=== PATIENT | male | born 1940 | race Caucasian/White ===

== ENCOUNTER 2017-02-08 23:26 | Inpatient (IN) | payer MEDICARE, BC ==
[2017-02-09] MEDS ORDERED: NS 0.9% 1000 ML* 1,000 ML IV ONE (00:29)
[2017-02-09] MEDS: Pantoprazole IV* 40 MG IV ONE ×2 (00:56→05:34)
[2017-02-09 01:00] LABS: Hematocrit 37 % (42-52); Hemoglobin 12.8 g/dl (14.0-18.0); Mean Corpuscular HGB Conc 34 g/dl (31-36); Mean Corpuscular Hemoglobin 35 pg (27-31); Mean Corpuscular Volume 101 fL (80-94); Mean Platelet Volume 8 um3 (7.4-10.4); Red Blood Count 3.71 10^6/ul (4.0-5.4); Red Cell Distribution Width 13 % (10.5-15); White Blood Count 4.4 10^3/ul (3.5-10.8)
[2017-02-09 01:13] LABS: Albumin 4.3 g/dL (3.2-5.2); BUN/Creatinine Ratio 16.9 (8-20); Calcium 9.3 mg/dL (8.6-10.3); EGFR African American 65.2 (>60); EGFR Non-African American 50.7 (>60); Potassium 3.9 mmol/L (3.5-5.0); Total Bilirubin 0.4 mg/dL (0.2-1.0); Total Protein 7.3 g/dL (6.4-8.9)
[2017-02-09 01:14] LABS: Troponin I 0.03 ng/mL (<0.04)
[2017-02-09] MEDS ORDERED: Iodixanol 320 (CONTRAST) 100 ML SDV IV ONE (01:54)
[2017-02-09 02:09] LABS: Urine Bilirubin Negative (Negative); Urine Glucose Negative (Negative); Urine Nitrite Negative (Negative)
--- NOTE | 2017-02-09 04:12 | ED ---
Tanner Steinberg Adam, scribed for Kyle Diaz on 02/09/17 at 0010 . GI/ HPI - HPI Summary HPI Summary: Pt is a 76 year old male presenting with a GI bleed. He states that he had diarrhea with bright red blood in his stool at approximately 23:00. He had just finished walking the dog and he suddenly had a strong urgency to go to the bathroom. He states that the diarrhea was very "mushy" and there was a significant amount of blood. He denies any nausea or vomiting. He denies ever having a GI bleed before. He has hx of hemorrhoids and irritable bowel. He has been taking Nexiom for 8 days. He is not on any blood-thinners. - History of Current Complaint Chief Complaint: EDGIBleed Time Seen by Provider: 02/09/17 00:05 Stated Complaint: BLOODY STOOL Hx Obtained From: Patient Onset/Duration: Started Minutes Ago, Atraumatic Timing: Intermittent - 1 episode Severity: Moderate Current Severity: None Pain Intensity: 0 Associated Signs and Symptoms: Positive: Blood w/Stool, Diarrhea Aggravating Factor(s): Nothing Alleviating Factor(s): Nothing - Allergy/Home Medications Allergies/Adverse Reactions: Allergies Allergy/AdvReac Type Severity Reaction Status Date / Time Alprazolam [From Xanax] Allergy Intermediate Dizziness Verified 02/09/17 00:21 Bupropion Allergy Intermediate ELEVATED BP Verified 02/09/17 00:21 Doxycycline Allergy Intermediate Palpitation Verified 02/09/17 00:21 s Pantoprazole [From Protonix] Allergy Intermediate Palpitation Verified 02/09/17 00:21 s Yellow Dye Allergy Intermediate Rash Verified 02/09/17 00:21 Penicillins [PCN] Allergy Hives Verified 02/09/17 00:21 Home Medications: Home Medications Esomeprazole Magnesium [Nexium] 40 mg PO DAILY 02/09/17 [History Confirmed 02/09] PMH/Surg Hx/FS Hx/Imm Hx Endocrine/Hematology History: Denies: Hx Diabetes Cardiovascular History: Reports: Other Cardiovascular Problems/Disorders - Pt has normally low resting HR r/t activity Denies: Hx Hypertension Respiratory History: Denies: Hx Asthma, Other Respiratory Problems/Disorders GI History: Reports: Other GI Disorders - irritable bowel History: Denies: Hx Renal Disease Musculoskeletal History: Reports: Other Musculoskeletal History - Broken R arm r /t fall from ladder 2 yrs ago Neurological History: Denies: Other Neuro Impairments/Disorders - Surgical History Surgery Procedure, Year, and Place: na Infectious Disease History: Denies: Traveled Outside the [place] in Last 30 Days - Family History Known Family History: Positive: None - "Nothing. I'm very lynn!" - Social History Occupation: Retired Lives: With Family - Hx Substance Use: No Substance Use Type: Reports: None Hx Tobacco Use: No Review of Systems Negative: Fever Positive: Diarrhea, Other - Blood in stool. Negative: Abdominal Pain, Vomiting , Nausea All Other Systems Reviewed And Are Negative: Yes Physical Exam Triage Information Reviewed: Yes Vital Signs On Initial Exam: Initial Vitals Temp Pulse Resp BP Pulse Ox 98 F 60 18 132/71 100 02/08/17 23:47 02/08/17 23:47 02/08/17 23:47 02/08/17 23:47 02/08/17 23:47 Vital Signs Reviewed: Yes Appearance: Positive: Well-Appearing, No Pain Distress Skin: Positive: Warm, Skin Color Reflects Adequate Perfusion, Dry Head/Face: Positive: Normal Head/Face Inspection Eyes: Positive: EOMI, ASMITA ENT: Positive: Normal ENT inspection Neck: Positive: Supple, Nontender Respiratory/Lung Sounds: Positive: Clear to Auscultation, Breath Sounds Present Cardiovascular: Positive: RRR, Pulses are Symmetrical in both Upper and Lower Extremities Abdomen Description: Positive: Nontender, Soft Bowel Sounds: Positive: Present Musculoskeletal: Positive: Normal, Strength/ROM Intact Diagnostics - Vital Signs Vital Signs Temp Pulse Resp BP Pulse Ox 02/08/17 23:47 98 F 60 18 132/71 100 - Laboratory Result Diagrams: 02/09/17 00:45 02/09/17 00:45 Lab Statement: Any lab studies that have been ordered have been reviewed, and results considered in the medical decision making process. - CT A/P CT Interpretation Completed By: Radiologist - IMPRESSION: NO INFLAMMATORY PROCESS IDENTIFIED IN THE ABDOMEN OR PELVIS. NO ABDOMINAL MASS, ADENOPATHY OR COLLECTION SEEN. NO EXPLANATION SEEN FOR THIS PATIENT'S ABDOMINAL PAIN. - EKG 00:28 Cardiac Rate: Bradycardia - 57 BPM EKG Rhythm: Sinus Bradycardia - Additional Comments Diagnostic Additional Comments: Troponin I - 0.03 GIGU Course/Dx - Course Course Of Treatment: Dr. Hung (Hospitalist) agrees to admit the patient. - Diagnoses Provider Diagnoses: GI bleed Discharge - Discharge Plan Condition: Stable Disposition: ADMITTED TO [facility] Referrals: Jamil Kenney MD [Primary Care Provider] - The documentation as recorded by the Tanner moore Adam accurately reflects the service I personally performed and the decisions made by , Kyle Diaz.
[2017-02-09 05:36] LABS: Hematocrit 35 % (42-52); Hemoglobin 11.9 g/dl (14.0-18.0)
[2017-02-09] MEDS: Pantoprazole IV* 80 MG in NS 0.9% 250 ML* 250 ML IVPB SCH ×2 (06:03→16:28)
[2017-02-09] MEDS: NS 0.9% 1000 ML* 1,000 ML IV SCH ×2 (06:42→16:29)
--- NOTE | 2017-02-09 08:12 | PN ---
Subjective Date of Service: 02/09/17 Interval History: This is a very pleasant 76 yo gentleman who came in the ER with concern for rectal bleeding. He reports feeling as if he was going to have diarrhea yesterday and was able to make it to the bathroom. After finishing, he noted that the toilet water was "very red." He had another episode with a "pretty good amount of blood" and noted that the stool was pretty dark. He has had 2 episodes in the ER overnight but none this morning. He denies abdominal pain, n/ v. He denies fever/chills, dizziness, chest pain, SOB. He states, "I'm pretty lynn. I've been pretty healthy most of my life." No previous history of GIB. Mr. Razo states that he has been on Nexium for 8 days; this was prescribed in [place]. He spends [place] in [place]; he states that Dr. Kenney referred him to a local crew foreman 3 months ago, but by the time they called him, he was on his way to [place]. He describes symptoms of having "gas" build up in his stomach to the point of making him feel dizzy. Once the gas resolves and he has a BM, the dizziness goes away. The [place] provider who saw him started him on Nexium and recommended further GI follow-up. Family History: Unchanged from Admission Social History: Unchanged from Admission Past Medical History: Unchanged from Admission Objective Active Medications: Sodium Chloride (Ns 0.9% 1000 Ml*) 1,000 mls @ 100 mls/hr IV ED ONCE ONE Stop: 02/09/17 10:28 Last Admin: 02/09/17 00:56 Dose: 100 mls/hr Sodium Chloride (Ns 0.9% 1000 Ml*) 1,000 mls @ 100 mls/hr IV PER RATE [facility] Last Admin: 02/09/17 06:42 Dose: 100 mls/hr Pantoprazole Sodium 80 mg/ (Sodium Chloride) 250 mls @ 25 mls/hr IVPB Q10H [facility] Last Admin: 02/09/17 06:03 Dose: 25 mls/hr Vital Signs 02/09/17 02/09/17 02/09/17 05:30 06:00 06:41 Temperature 97.6 F Pulse Rate 57 53 58 Respiratory 19 21 18 Rate Blood Pressure 151/67 137/62 152/59 (mmHg) O2 Sat by Pulse 100 100 100 Oximetry 02/09/17 07:04 Temperature Pulse Rate Respiratory 18 Rate Blood Pressure (mmHg) O2 Sat by Pulse Oximetry Oxygen Devices in Use Now: None Appearance: Well appearing, pleasant gentleman, lying in bed, in NAD Eyes: PERRLA Ears/Nose/Mouth/Throat: Mucous Membranes Moist, - - [place] Neck: NL Appearance and Movements; NL JVP Respiratory: Symmetrical Chest Expansion and Respiratory Effort, Clear to Auscultation Cardiovascular: NL Sounds; No Murmurs; No JVD, RRR Abdominal: NL Sounds; No Tenderness; No Distention Extremities: No Edema Skin: No Rash or Ulcers Neurological: Alert and Oriented x 3, NL Muscle Strength and Tone Lines/Tubes/Other Access: Clean, Dry and Intact Peripheral IV Nutrition: Taking PO's Result Diagrams: 02/09/17 05:30 02/09/17 00:45 Assess/Plan/Problems-Billing Assessment: Mr. Razo is a 76 yo male patient with a PMH of IBS who presented to the ED 02/08 with concern for gastrointestinal bleeding. - Patient Problems (1) Gastrointestinal bleeding Code(s): K92.2 - GASTROINTESTINAL HEMORRHAGE, UNSPECIFIED Comment: Currently stable Continue to trend HH q6h Appreciate GI consult BUN not significantly elevated, but suspicion for upper GI involvement Continue IVF, pantoprazole gtt NPO status (2) Irritable bowel syndrome (IBS) Comment: No chronic medications Patient recently started on Nexium in [place] (3) DVT prophylaxis Code(s): HRX8893 - Comment: SCDs Anticoagulation contraindicated in the presence of acute bleed Status and Disposition: Inpatient admission. Anticipate 2-3 day LOS.
--- NOTE | 2017-02-09 10:54 | RAD ---
Indication: GI bleeding, diverticulitis. Contrast: Administered 100.1 ml of VISAPAQUE 320 mgi/ml CT of the abdomen and pelvis was performed after IV contrast administration. Coronal and sagittal reconstructed images were obtained. Comparison is made with previous exam dated October 27, 2013. The lung bases demonstrate emphysematous changes. No pleural fluid or nodules or masses identified. The heart demonstrates no pericardial effusion. Calcifications are noted over the right hemidiaphragm which may represent pleural-based calcifications. Pleural plaques are noted over the left hemidiaphragm as well. This is unchanged from previous exam. Liver is normal in size. No focal lesions or intrahepatic ductal dilatation is noted. The gallbladder demonstrates no calcified gallstones. No pericholecystic fluid or wall thickening is noted. The spleen is normal in size. The common duct is not dilated. Pancreas demonstrates no mass or pancreatic ductal dilatation. No adrenal lesions are noted. The kidneys and she symmetric nephrograms without focal lesions. Atherosclerotic aorta is noted. No a residual dilatation is noted. Small 5 mm interaortocaval and left para-aortic lymph nodes are noted. No dilated loops of bowel are noted. The appendix is visualized and is normal. Scattered diverticula are noted in the pelvis without definite evidence of diverticulitis. Urinary bladder is otherwise unremarkable. The prostate gland is enlarged. The lumbar spine demonstrates multilevel degenerative disc disease noted. No compression fracture is noted. No significant sclerotic lesions are noted. IMPRESSION: PLEURAL PLAQUES OVERLYING THE RIGHT LEFT HEMIDIAPHRAGM IS UNCHANGED FROM PREVIOUS EXAM. 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 NO ABNORMAL MASSES OR FLUID COLLECTIONS ARE IDENTIFIED. DIVERTICULOSIS WITHOUT DEFINITE EVIDENCE OF DIVERTICULITIS.
[2017-02-09 11:23] LABS: Hematocrit 37 % (42-52); Hemoglobin 12.5 g/dl (14.0-18.0)
--- NOTE | 2017-02-09 11:59 | HP ---
HISTORY AND PHYSICAL: DATE OF ADMISSION: 02/09/17 CHIEF COMPLAINT: Bloody stool. HISTORY OF PRESENT ILLNESS: The patient is a 76-year-old gentleman, who says for 3 months, he has been having trouble with his stomach. He has had increased gas and dizzy spells. He has been in [place] and saw a sanding machine operator there. He did not have time to get an upper endoscopy there , but has had problems and his sanding machine operator prescribed him Nexium 8 days ago. He then came back to [place]. He says when he gets dizzy, if he has a bowel movement or vomit, the dizziness automatically goes away. He did not even walk into his door when he came back to the house and almost did not make it to the toilet. However, when he did, he had a bowel movement, there was red blood in it. Went to the toilet again after that and had significant black stool. He denied any belly pain. He is no longer dizzy. PAST MEDICAL HISTORY: Significant for reflux. CURRENT MEDICATIONS: Include Nexium 40 mg a day. ALLERGIES: He has an allergy to PENICILLIN. FAMILY HISTORY: Mother at 82 of old age. Father in his 90s, he had a CHF. SOCIAL HISTORY: No tobacco, alcohol, or recreational drug use. 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 He is . His , Arti Gabriel, is his healthcare proxy; number is [phone]. REVIEW OF SYSTEMS: A 14-point review of systems was completed with the patient. All pertinent positives and negatives are in the history of present illness, otherwise it is negative. PHYSICAL EXAMINATION GENERAL: He is a very pleasant, gentleman lying in bed, in no acute distress. VITAL SIGNS: Blood pressure 131/67, oxygenation 99%, respiratory rate 15 breaths per minute, heart rate 57 beats per minute, temperature 98.5 degrees. HEENT: Normocephalic, atraumatic. Pupils equal, round, and reactive to light. Moist mucous membranes. NECK: Supple. No JVD, bruits, palpable thyroid, or lymphadenopathy. CHEST: Clear to auscultation and percussion bilaterally. CARDIOVASCULAR: S1 and S2 appreciated. Regular rate and rhythm. Nor murmurs, gallops, or rubs. ABDOMEN: Positive bowel sounds in all 4 quadrants. Soft, nontender, nondistended. EXTREMITIES: No cyanosis, clubbing, or edema. +2 peripheral pulses bilaterally. NEURO: Alert and oriented x3. Moves all extremities. SKIN: No distinct rashes or abnormalities. DIAGNOSTIC STUDIES/LAB DATA: White count 4.4, hemoglobin 12.8, hematocrit 37, platelets are 157. Sodium is 138, potassium is 3.9, chloride 106, CO2 25, BUN 23, creatinine 1.36, glucose is 87. INR is 0.98. Urinalysis is unremarkable. Abdominal pelvic CT showed no inflammatory process identified in the abdomen or pelvis. No abdominal mass, adenopathy, or collection is seen. No explanation seen for the patient's abdominal pain. ASSESSMENT AND PLAN: 1. Upper gastrointestinal bleed. The patient actually did not have pain, but did have blood in the stool. We will do serial hemoglobin and hematocrits. Place on Protonix drip. Make n.p.o. Have GI see as he likely would benefit from an upper endoscopy as I suspect this is an ulcer. 2. FEN. N.p.o. Normal saline 100 cc an hour. 3. DVT prophylaxis. Sequential compression stockings. 4. The patient is a full code. TIME SPENT: Over 75 minutes was spent on this H and P, more than 40 minutes of which was spent in direct [id number] contact with the patient in evaluation, physical exam, counseling, and coordination of care. CC: Dr. Jamil Kenney* [id number]/CPS #: [id number] [facility]
[2017-02-09 16:59] LABS: Hematocrit 34 % (42-52); Hemoglobin 11.8 g/dl (14.0-18.0)
--- NOTE | 2017-02-09 17:06 | CONS ---
CONSULTATION REPORT: DATE OF CONSULT: 02/09/17 REQUESTING PHYSICIAN: Dr. Hung. INDICATION: Melena. NARRATIVE: Mr. Razo is a very pleasant 76-year-old gentleman with past medical history of GERD. He states that over the past few months, he has been feeling uneasy in his stomach. He will occasionally vomit and he does have occasional loose stools. He feels dizzy approximately every other day. If he feels dizzy and then he has a bowel movement or vomit, he feels better. He states that his stools have been darker, but he blames that on the Pepto-Bismol he has been taking. He did see a store keeper down in [place], who wanted to perform an upper endoscopy; however, the patient had to leave. He did start him on Nexium; it made slight improvement in his symptoms. He states that last night he was out walking the dog and he felt the urge to have a bowel movement and he came home quickly, sat down, and had a large bright red bloody bowel movement. He denied any abdominal pain, no rectal pain. Approximately half an hour later , he had another bowel movements, he states at that time, it was jet black and tarry. He again denies any abdominal pain. He does feel dizzy, but not now. He denies any aspirin or Advil. He will occasionally take Tylenol. He did have an EGD and a colonoscopy 3 years ago. He states the colonoscopy found a few small polyps and diverticulosis. PAST MEDICAL HISTORY: GERD. PAST SURGICAL HISTORY: Noncontributory. MEDICATIONS: Nexium. ALLERGIES: To PENICILLIN. FAMILY HISTORY: CHF. REVIEW OF SYSTEMS: Twelve systems were reviewed, other than that mentioned in the HPI were unremarkable. PHYSICAL EXAM: Temperature 97.4, 124/61 for blood pressure, pulse is 54, respiratory rate is 16, O2 sat is 100%. General: Well-appearing male in no apparent distress. Alert, oriented, pleasant, and fluent. HEENT: Mucous membranes are moist without lesions, ulcers, or exudate. Neck is supple. Trachea is midline. Head is normocephalic, atraumatic. Lungs: Clear to auscultation. Heart: Regular rate and rhythm. Abdomen: Positive bowel sounds. Soft, nontender, nondistended. No hepatosplenomegaly, masses, rebound , or guarding. Skin is warm and dry. No pallor. Good capillary refill. Musculoskeletal: No CVA or spinal tenderness to palpation. DIAGNOSTIC STUDIES/LAB DATA: Of note, hemoglobin went from 12.8 to 11.9 to 12.5. His INR is 0.98. BUN 23, creatinine is 1.36. CT abdomen and pelvis shows diverticulosis. ASSESSMENT AND PLAN: This is a pleasant 76-year-old gentleman, who had both bright red blood and melena. His hemoglobin is now stable. His BUN is within normal limits. I think at this point, I would like to begin his evaluation with an upper endoscopy. He had both EGD and colonoscopy just 3 years ago. I would like to begin with EGD looking for peptic ulcer disease. If it is unremarkable, we may need to consider either a small bowel capsule endoscopy versus a repeat colonoscopy. He is on IV Protonix. He has 2 large bore IVs. I will plan on an EGD tomorrow. CC: Dr. Kenney* [id number]/CPS #: [id number] [facility]
[2017-02-09 23:09] LABS: Hematocrit 34 % (42-52); Hemoglobin 11.7 g/dl (14.0-18.0)
[2017-02-10] MEDS: Pantoprazole IV* 80 MG in NS 0.9% 250 ML* 250 ML IVPB SCH ×2 (02:47→15:37)
[2017-02-10] MEDS: NS 0.9% 1000 ML* 1,000 ML IV SCH ×2 (02:48→12:55)
[2017-02-10 05:06] LABS: Hematocrit 33 % (42-52); Hemoglobin 11.3 g/dl (14.0-18.0); Mean Corpuscular HGB Conc 34 g/dl (31-36); Mean Corpuscular Hemoglobin 34 pg (27-31); Mean Corpuscular Volume 101 fL (80-94); Mean Platelet Volume 8 um3 (7.4-10.4); Red Blood Count 3.29 10^6/ul (4.0-5.4); Red Cell Distribution Width 13 % (10.5-15); White Blood Count 3.5 10^3/ul (3.5-10.8)
[2017-02-10 05:18] LABS: BUN/Creatinine Ratio 11.7 (8-20); Calcium 8.5 mg/dL (8.6-10.3); EGFR African American 69.9 (>60); EGFR Non-African American 54.4 (>60); Potassium 3.7 mmol/L (3.5-5.0)
[2017-02-10] MEDS ORDERED: Midazolam* 1 MG/ML 10 ML VIAL (10 MG) ONE (14:10)
[2017-02-10] MEDS ORDERED: Meperidine SYRINGE* 50 MG/ML ONE (14:10)
--- NOTE | 2017-02-10 16:31 | PN ---
Subjective Date of Service: 02/10/17 Interval History: This is a 76 yo gentleman with CKD who presented with c/o bloody diarrhea and had one episode of melena after admission. Hgb has been fairly stable since admission and patient has not required transfusion. He underwent EGD with Dr Tovar today. Patient reports no abdominal pain, n/v. No further BM since admission. No additional complaints. Objective Active Medications: Sodium Chloride (Ns 0.9% 1000 Ml*) 1,000 mls @ 100 mls/hr IV PER RATE [facility] Last Admin: 02/10/17 12:55 Dose: 100 mls/hr Omeprazole (Prilosec Cap*) 20 mg PO DAILY [facility] Vital Signs: Temp Pulse Resp BP Pulse Ox 96.8 F 45 18 101/48 100 02/10/17 15:34 02/10/17 15:34 02/10/17 15:34 02/10/17 15:34 02/10/17 15:34 Oxygen Devices in Use Now: None Appearance: Well appearing, hard of hearing, NAD Neck: NL Appearance and Movements; NL JVP Respiratory: Symmetrical Chest Expansion and Respiratory Effort, Clear to Auscultation Cardiovascular: NL Sounds; No Murmurs; No JVD, RRR Abdominal: NL Sounds; No Tenderness; No Distention Extremities: No Edema Skin: No Rash or Ulcers Neurological: Alert and Oriented x 3 Result Diagrams: 02/10/17 04:45 02/10/17 04:45 Diagnostic Imaging: CT abd/pelvis - NAD Assess/Plan/Problems-Billing Assessment: Mr. Razo is a 76 yo male patient with a PMH of IBS who presented to the ED 02/08 with concern for gastrointestinal bleeding. - Patient Problems (1) Gastrointestinal bleeding Comment: H/H stable, no hemodynamic compromise Appreciate GI consult EGD shows some duodenitis, no lexus bleeding Discussed case with Dr Tovar who suggests outpt capsule endoscopy Will plan to check HH this evening and tomorrow am with likely dc tomorrow (2) LBBB (left bundle branch block) Comment: New on EKG this admission No complaints of CP Recommend outpt w/u including stress test (3) Irritable bowel syndrome (IBS) Comment: No chronic medications (4) DVT prophylaxis Comment: SCDs Anticoagulation contraindicated in the presence of acute bleed Status and Disposition: Inpatient admission. Anticipate dc tomorrow
[2017-02-10 17:29] LABS: Hematocrit 32 % (42-52); Hemoglobin 10.8 g/dl (14.0-18.0)
[2017-02-11 05:55] LABS: Hematocrit 32 % (42-52)
--- NOTE | 2017-02-11 07:23 | PRO ---
DATE OF PROCEDURE: 02/10/17 - ROOM #[id number] PROCEDURE: EGD with biopsies. REFERRING PHYSICIAN: Jamil Kenney MD* MEDICATIONS GIVEN: 25 mg IV Demerol, 4 mg IV Versed. PROCEDURE IN DETAIL: After the EGD procedure including the risks, benefits, and alternatives not limited to perforation, surgery, and/or were explained to the patient. Written consent was then obtained. IV medication was given and a bite block was placed between the teeth. Olympus gastroscope was then inserted into the patient's mouth, advanced down the esophagus, into the stomach, into the distal duodenum. In the esophagus at the GE junction the Z-line was intact. No erosive esophagitis, stricture, or ring was seen. The scope was advanced through the GE junction into the body of the stomach. It was unremarkable both forward and retroflex views. Biopsy for H. pylori was obtained. The scope was advanced through a widely patent pylorus, into the duodenal bulb, into the distal duodenum. There was mild duodenitis. Otherwise no other abnormalities were seen. The patient scope was then withdrawn from the patient patient. He tolerated the procedure well and was returned to the recovery room in stable condition. IMPRESSION: 1. Complete upper endoscopy into the distal duodenum with biopsies. 2. Duodenitis. 3. No etiology was seen for his melena. I do wonder if he needs a capsule endoscopy. I will follow up with biopsies. [id number]/CPS #: [id number] [facility]
[2017-02-11 08:16] VITALS: BP 127/52
[2017-02-11] MEDS ORDERED: Pantoprazole IV* 40 MG IV SCH (09:00)
[2017-02-11] MEDS ORDERED: Omeprazole CAP* 20 MG PO SCH (09:00)
--- NOTE | 2017-02-11 21:58 | DS ---
DISCHARGE SUMMARY: DATE OF ADMISSION: 02/09/17 DATE OF DISCHARGE: 02/11/17 PRIMARY CARE PROVIDER: Dr. Kenney. BEEF SELECTOR: Dr. Tovar. DISCHARGING PROVIDER: PRINCESS Ortega SUPERVISING PHYSICIAN: Dr. Melly Wyman.* (DICTATED BY PRINCESS ORTEGA) PRIMARY DISCHARGE DIAGNOSES: 1. Gastrointestinal bleed. 2. Duodenitis. 3. New left bundle branch block. SECONDARY DISCHARGE DIAGNOSES: 1. Irritable bowel syndrome. 2. Stage 3 chronic kidney disease. DISCHARGE MEDICATIONS: Nexium 40 mg p.o. daily. Medication changes: None. HOSPITAL IMAGIN. CT of the abdomen and pelvis shows pleural plaques overlying the left hemidiaphragm, which is unchanged from prior exam. No acute intraabdominal findings. Some degenerative disk changes in the lumbar spine and evidence of diverticulosis without diverticulitis. 2. EKG shows sinus rhythm with a left bundle branch block, which appears to be new when compared to prior EKGs. HOSPITAL COURSE: This is a 76-year-old gentleman with a history of irritable bowel syndrome, who presented to the emergency department with an episode of hematochezia. The patient states that there was a rather large volume of bright red blood seen in the toilet. Shortly after admission, he had another bowel movement, which was a large volume of black stool. He denied any associated abdominal pain. CT scan of the abdomen and pelvis was performed, which was unremarkable for acute intraabdominal pathology. Labs were largely unremarkable. The patient was admitted with serial H and H monitoring, which remained stable. No hemodynamic compromise. The patient did not require a blood transfusion. The patient was evaluated by forest economics professor, Dr. Tovar , who performed an EGD, 02/10/17. EGD findings were largely unremarkable demonstrating some mild duodenitis, but no lexus bleeding. No ulcerations. Discussed the case with Dr. Tovar, who recommends capsule endoscopy as the next step for evaluation. He has had a colonoscopy approximately 3 years ago that was unremarkable at that time. The patient did not have any additional bowel movements during his hospital stay and continued to deny abdominal pain and hemoglobin remained stable. DISPOSITION: The patient is being discharged to home, where he lives with his . No changes made to home medications. Recommend followup with Dr. Tovar for capsule endoscopy. The patient instructed to return to the emergency department if he experiences a large volume of GI blood loss. Also, of note, this patient's EKG was abnormal indicating left bundle branch block during his hospitalization. This was new when compared to prior EKGs. The patient had no cardiac symptom. We would recommend outpatient workup including a stress testing. Aspirin was not initiated due to his complaints of GI bleed. PRINCESS ORTEGA CC: Dr. Kenney; Dr. Tovar* [id number]/CPS #: [id number] [facility]
== END 2017-02-11 09:05 | disposition home or self-care (01) | DRG 379 ==
LOC: ED 23:26 → SSU 02-09 05:14
PROVIDERS: ADMIT Internal Medicine; ATTEND Internal Medicine
PROC: 0DB98ZX Excision of Duodenum, Via Natural or Artificial Opening Endoscopic, Diagnostic (ICD-10-PCS; principal; 2017-02-10)
DX: K92.1 Melena (principal); N18.3 Chronic kidney disease, stage 3 (moderate); I44.7 Left bundle-branch block, unspecified; K29.80 Duodenitis without bleeding; K58.9 Irritable bowel syndrome, unspecified; K57.90 Diverticulosis of intestine, part unspecified, without perforation or abscess without bleeding; K21.9 Gastro-esophageal reflux disease without esophagitis; Z82.49 Family history of ischemic heart disease and other diseases of the circulatory system; Z88.1 Allergy status to other antibiotic agents; Z88.8 Allergy status to other drugs, medicaments and biological substances; Z88.0 Allergy status to penicillin; Z91.048 Other nonmedicinal substance allergy status; M51.36 Other intervertebral disc degeneration, lumbar region
CPT/HCPCS: 36415; 74177; 80048; 80053; 81003; 83690; 84484; 85014; 85018; 85025; 85610; 85730; 87077; 88305; 93005; A9270-GY; J2250; Q9967

== ENCOUNTER → 2017-03-02 05:06 | Emergency (ER) | payer MEDICARE, BC ==
[2017-03-02 05:13] VITALS: BP 143/66
== END | disposition left against medical advice (07) ==
LOC: ED 05:06
DX: L50.9 Urticaria, unspecified (principal); Z53.21 Procedure and treatment not carried out due to patient leaving prior to being seen by health care provider

== ENCOUNTER 2017-03-02 07:03 | Emergency (ER) | payer MEDICARE, BC ==
[2017-03-02 07:23] VITALS: BP 127/67
--- NOTE | 2017-03-02 07:55 | UC ---
Elijah Steinberg Matthew, [facility] on 03/02/17 at 0744 . Allergic Reaction HPI - HPI Summary HPI Summary: Nurse's Note: HERE WITH HIVES THAT HE HAS HAD FOR 9 DAYS. HE WAS PUT ON NEXIUM ON January FOR STOMACH PROBLEMS. HAS DIVERTICULITIS. WAS PUT ON CIPRO FOR THIS STARTED THIS 3 DAYS AGO. FIRST TIME ON CIPRO. ALLERGIC TO PENICILLIN AND DOXYCYCLINE. VERY ITCHY. Note: Note: A 76 year old man presents with a c/o of hives. Visit history includes IBS and palpitations. Over the past 6 years he has had several visits for hives. His vital signs are stable. The patient was evaluated for blood in his stool on 02/11/17. The patients discharged DC was GI bleed duodenitis and new LBBB. No acute intraabdominal findings. CT of the abdomen was negative. No pathology at that time. RR 16. Pulse oxygen 99%. In Room Note: A 76 y/o male presents to c/o of hives for the past 9 days, which worsened last night. He started Nexium on 01/30/17 and developed hives 21 days later. He stopped the nexium 9 days ago after calling his PCP and the symptoms didn't improve. He then started Cipro 3 days ago for his Hx of duodenitis (which he states his diverticulitis) and his hives worsened last night. The hives are located across his chest and back. Associated symptoms include pruritus. He denies trouble swallowing, difficulty breathing and abdominal pain. He states that he tried calamine lotion last night, which immediately worsened the pruritus. He denies FHx of HTN, allergies, and CAD. He states that he's never had a rash like this before. 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 - History of Current Complaint Chief Complaint: UCS[place] Stated Complaint: HIVES Time Seen by Provider: 03/02/17 07:16 Hx Obtained From: Patient Onset/Duration: Lasting Days, Still Present Severity Initially: Moderate Severity Currently: Moderate Location: Diffuse - chest and back Character: Pruritus, Hives Aggrevating Factor(s): Other - calamine lotion Alleviating Factor(s): Nothing Associated Signs And Symptoms: Positive: Rash. Negative: Abdominal Pain, Difficulty Breathing, Throat Tightening - Allergies/Home Medications Allergies/Adverse Reactions: Allergies Allergy/AdvReac Type Severity Reaction Status Date / Time Alprazolam [From Xanax] Allergy Intermediate Dizziness Verified 03/02/17 07:15 Bupropion Allergy Intermediate ELEVATED BP Verified 03/02/17 07:15 Doxycycline Allergy Intermediate Palpitation Verified 03/02/17 07:15 s Yellow Dye Allergy Intermediate Rash Verified 03/02/17 07:15 Penicillins [PCN] Allergy Hives Verified 03/02/17 07:15 Home Medications: Home Medications Ciprofloxacin HCl [Cipro 500 MG TAB] 1 tab PO BID 03/02/17 [History Confirmed ] Diphenhydramine HCl [Benadryl Allergy 25 MG TAB] 2 tab PO TID PRN 03/02/17 [ History Confirmed 03/02/17] PMH/Surg Hx/FS Hx/Imm Hx Endocrine History Of: Denies: Diabetes, Thyroid Disease Cardiovascular History Of: Denies: Cardiac Disorders Respiratory History Of: Denies: COPD, Asthma, Bronchitis GI/ History Of: Denies: Ulcer, Renal Disease Neurological History Of: Denies: CVA - Surgical History Surgical History: None Surgery Procedure, Year, and Place: na - Family History Known Family History: Positive: None - "Nothing. I'm very lynn!" Negative: Cardiac Disease, Hypertension - Social History Alcohol Use: None Substance Use Type: None Smoking Status (MU): Never Smoked Tobacco - Immunization History Most Recent Influenza Vaccination: 2016 Most Recent Pneumonia Vaccination: a few years ago Review of Systems Constitutional: Negative Skin: Rash - Hives across the chest and back, Other - Pruritus Eyes: Negative ENT: Negative Respiratory: Negative Cardiovascular: Negative Gastrointestinal: Negative Genitourinary: Negative Motor: Negative Neurovascular: Negative Musculoskeletal: Negative Neurological: Negative Psychological: Negative All Other Systems Reviewed And Are Negative: Yes Physical Exam Triage Information Reviewed: Yes Appearance: Well-Appearing, No Pain Distress, Well-Nourished Vital Signs: Initial Vital Signs Temp 97.6 F 03/02/17 07:17 Pulse 63 03/02/17 07:17 Resp 16 03/02/17 07:17 BP 127/67 03/02/17 07:17 Pulse Ox 99 03/02/17 07:17 Vital Signs Reviewed: Yes Eyes: Positive: Conjunctiva Clear ENT: Positive: Hearing grossly normal, Pharynx normal, TMs normal. Negative: Muffled/hoarse voice Neck: Positive: Supple, No Lymphadenopathy, Other: - No bruits Respiratory: Positive: Chest non-tender, Lungs clear, Normal breath sounds Cardiovascular: Positive: RRR, No Murmur Abdomen Description: Positive: Nontender, No Organomegaly, Soft Bowel Sounds: Positive: Present Musculoskeletal: Positive: Strength Intact - MAYER Neurological: Positive: Alert Psychological: Positive: Age Appropriate Behavior Skin Exam: Other - no swollen glands; DIFFUSE ERYTHEMATOUS, URTICARIA RASH ON HIS CHEST AND OVER HIS BACK. It does not appear on the LE. ITS IRRITATED ON THE FRONT OF THE CHEST, WHERE HE HAD BEEN SCRATCHING AND THE DORSUM OF THE RIGHT AND LEFT ARM. No evidence of cellulites or lymphangitis. No auxiliary swollen nodes Allergic Reaction Course/Dx - Course Course Of Treatment: Apparently this patient had a reaction to Nexium. Even though he had a rash that rash became more intense and itchy after Cipro. I am assuming that hes also allergic to Cipro, because of his multiple allergies. The patient understands that he will stop the Cipro. Gisella started him on non- sedating antihistamines and hydrocortisone 2.5% with follow-up tomorrow from his physician. DOCUMENTATION NOTE: Patient is Urgent/Emergent. BP elevated due to current condition w/o HTN in PMH - Differential Dx/Diagnosis Differential Diagnosis/HQI/PQRI: Urticaria Provider Diagnoses: Urticaria Discharge - Discharge Plan Condition: Stable Disposition: HOME Prescriptions: Cetirizine HCl [Zyrtec Allergy 10 MG TAB] 10 mg PO DAILY #10 cap MDD ONE Hydrocortisone 2.5% CREAM(NF) 1 applic TOPICAL BID #1 tube MDD 3 Patient Education Materials: Urticaria (ED), Cold Compress or Soak (ED) Referrals: Jamil Kenney MD [Primary Care Provider] - Additional Instructions: WE DISCUSSED: You probably are having a reaction to the ciprofloxacin. STOP THE CIPROFLOXACIN. CALL YOU DOCTOR TOMORROW TO DECIDE ON WHAT YOU SHOULD TAKE. FOR ITCHING AND RASH: 1. CETIRIZINE: 10MG ONCE A DAY. 2. STEROID CREAM: apply twice a day to most itchy spots. Don't use for more than a week without talking to your doctor about it. 3. Once you stop the antibiotic, the itching should get less and the rash should get less. At that point, the Benadryl might work even though it didn't work last night. 4. Use cool soaks to area for intense itching. 5. Watch for any signs of infection. Pain or redness. You have diverticulitis and duodenitis. GO TO ED FOR ANY PROBLEMS BREATHING OR SWALLOWING. Your blood pressure reading today was 127/67, which is HYPERTENSIVE/PRE- HYPERTENSIVE. Follow-up with your primary care provider within 4 weeks for blood pressure readings and further evaluation. Thank you for helping us improve patient care by filling out the [facility]. The documentation as recorded by the Elijah moore Matthew accurately reflects the service I personally performed and the decisions made by me, Derrek Kwong MD.
== END 2017-03-02 07:55 | disposition home or self-care (01) ==
LOC: UCEAST 07:03
DX: L50.9 Urticaria, unspecified (principal); Z88.1 Allergy status to other antibiotic agents; Z88.0 Allergy status to penicillin
CPT/HCPCS: 99212; G0463

== ENCOUNTER 2017-05-19 00:07 | Emergency (ER) | payer MEDICARE, BC ==
[2017-05-19 00:56] VITALS: BP 134/70
[2017-05-19] MEDS ORDERED: Ondansetron INJ* 2 MG/ML VIAL IV ONE (01:39)
[2017-05-19] MEDS ORDERED: NS 0.9% 1000 ML* 1,000 ML IV ONE (01:39)
--- NOTE | 2017-05-19 01:43 | ED ---
Soren Steinberg Alok, scribed for Derrek Johnson MD on 05/19/17 at 0138 . Complex/Multi-Sys Presentation - HPI Summary HPI Summary: 76M presents to the ED with dizziness and N/V for the past 6 months. Today pt notes vomiting worsening tonight prompting his visit to the ED. Pt states his dizziness improves with BM and vomiting. Pt denies abd pain. Pt last had an endoscopy 3 months ago. - History Of Current Complaint Chief Complaint: EDDizziness Time Seen by Provider: 05/19/17 01:33 Hx Obtained From: Patient Onset/Duration: Lasting Weeks, Still Present Timing: Constant Severity Currently: Moderate Severity Initially: Moderate Location: Negative Associated Signs And Symptoms: Positive: Dizziness, Nausea, Vomiting. Negative : Abdominal Pain - Allergies/Home Medications Allergies/Adverse Reactions: Allergies Allergy/AdvReac Type Severity Reaction Status Date / Time Alprazolam [From Xanax] Allergy Intermediate Dizziness Verified 05/19/17 01:59 Bupropion Allergy Intermediate ELEVATED BP Verified 05/19/17 01:59 Doxycycline Allergy Intermediate Palpitation Verified 05/19/17 01:59 s Yellow Dye Allergy Intermediate Rash Verified 05/19/17 01:59 Ciprofloxacin [From Cipro] Allergy Itching Verified 05/19/17 01:59 Esomeprazole [From Nexium] Allergy Itching Verified 05/19/17 01:59 Metronidazole [From Flagyl] Allergy Itching Verified 05/19/17 01:59 Penicillins [PCN] Allergy Hives Verified 05/19/17 01:59 PMH/Surg Hx/FS Hx/Imm Hx Endocrine/Hematology History: Denies: Hx Diabetes, Hx Thyroid Disease Cardiovascular History: Reports: Other Cardiovascular Problems/Disorders - Pt has normally low resting HR r/t activity Denies: Hx Hypertension Respiratory History: Denies: Hx Asthma, Hx Chronic Obstructive Pulmonary Disease (COPD), Other Respiratory Problems/Disorders GI History: Reports: Hx Gastroesophageal Reflux Disease, Other GI Disorders - irritable bowel Denies: Hx Ulcer History: Denies: Hx Dialysis, Hx Renal Disease Musculoskeletal History: Reports: Other Musculoskeletal History - Broken R arm r /t fall from ladder 2 yrs ago Sensory History: Reports: Hx Contacts or Glasses, Hx Hearing Aid, Hx Hearing Problem Opthamlomology History: Reports: Hx Contacts or Glasses Neurological History: Denies: Other Neuro Impairments/Disorders - Surgical History Surgery Procedure, Year, and Place: na - Immunization History Date of Tetanus Vaccine: utd Date of Influenza Vaccine: utd Infectious Disease History: No Infectious Disease History: Denies: Hx Hepatitis, Hx Human Immunodeficiency Virus (HIV), History Other Infectious Disease, Traveled Outside the [place] in Last 30 Days - Family History Known Family History: Negative: Cardiac Disease, Hypertension, Diabetes - Social History Occupation: Retired Lives: With Family Alcohol Use: None Hx Substance Use: No Substance Use Type: Reports: None Hx Tobacco Use: No Smoking Status (MU): Never Smoked Tobacco Review of Systems Negative: Fever Positive: Vomiting, Nausea. Negative: Abdominal Pain All Other Systems Reviewed And Are Negative: Yes Physical Exam Triage Information Reviewed: Yes Vital Signs On Initial Exam: Initial Vitals Temp Pulse Resp BP Pulse Ox 97.6 F 56 16 151/63 100 05/19/17 00:11 05/19/17 00:11 05/19/17 00:11 05/19/17 00:11 05/19/17 00:11 Vital Signs Reviewed: Yes Appearance: Positive: Well-Appearing, No Pain Distress Skin: Positive: Warm Head/Face: Positive: Normal Head/Face Inspection Eyes: Positive: ASMITA ENT: Positive: Hearing grossly normal Neck: Positive: Supple Respiratory/Lung Sounds: Positive: Clear to Auscultation, Breath Sounds Present Cardiovascular: Positive: RRR Abdomen Description: Positive: Nontender, Soft Bowel Sounds: Positive: Present Musculoskeletal: Positive: Strength/ROM Intact Neurological: Positive: Alert, Oriented to Person Place, Time Psychiatric: Positive: Affect/Mood Appropriate Diagnostics - Vital Signs Vital Signs Temp Pulse Resp BP Pulse Ox 05/19/17 00:56 98 F 59 16 134/70 100 05/19/17 00:53 98.5 F 51 16 134/70 99 05/19/17 00:11 97.6 F 56 16 151/63 100 - Laboratory Result Diagrams: 05/19/17 02:10 05/19/17 02:10 Lab Statement: Any lab studies that have been ordered have been reviewed, and results considered in the medical decision making process. - EKG 0030 Cardiac Rate: NL - 63 bpm EKG Rhythm: Sinus Rhythm Ectopy: PVCs EKG Interpretation: LBBB Re-Evaluation - Re-Evaluation First Eval Re-Evaluation Time: 03:25 Change: Improved Comment: Discussed patient lab results. Pt is feeling better and will be discharged home. Pt agrees with this. Complex Multi-Symp Course/Dx - Diagnoses Provider Diagnoses: Vomiting Discharge - Discharge Plan Condition: Improved Disposition: HOME Patient Education Materials: Acute Nausea and Vomiting (ED) Referrals: Jamil Kenney MD [Primary Care Provider] - Additional Instructions: Please follow up with your primary care provider The documentation as recorded by the Soren moore Alok accurately reflects the service I personally performed and the decisions made by me, Derrek Johnson MD.
[2017-05-19 02:37] LABS: Albumin 3.9 g/dL (3.2-5.2); BUN/Creatinine Ratio 17.7 (8-20); C Reactive Protein 1.84 mg/L (< 5.00); Calcium 9.2 mg/dL (8.6-10.3); EGFR African American 80.7 (>60); EGFR Non-African American 62.8 (>60); Globulin 3.1 g/dL (2-4); Potassium 3.7 mmol/L (3.5-5.0); Total Bilirubin 0.6 mg/dL (0.2-1.0)
[2017-05-19 02:47] LABS: Hematocrit 38 % (42-52); Hemoglobin 12.8 g/dl (14.0-18.0); Mean Corpuscular HGB Conc 33 g/dl (31-36); Mean Corpuscular Hemoglobin 35 pg (27-31); Mean Corpuscular Volume 104 fL (80-94); Mean Platelet Volume 9 um3 (7.4-10.4); Red Blood Count 3.66 10^6/ul (4.0-5.4); Red Cell Distribution Width 13 % (10.5-15); White Blood Count 7.2 10^3/ul (3.5-10.8)
== END 2017-05-19 03:34 | disposition home or self-care (01) ==
LOC: ED 00:07
DX: R11.2 Nausea with vomiting, unspecified (principal); R42 Dizziness and giddiness
CPT/HCPCS: 36415; 80053; 83605; 83690; 85025; 86140; 93005; 96374; 99282; J2405

== ENCOUNTER 2018-03-25 22:41 | Emergency (ER) | payer MEDICARE, BC ==
[2018-03-25 22:48] VITALS: BP 158/82
--- NOTE | 2018-03-25 23:33 | ED ---
Throat Pain/Nasal Congestion - HPI Summary HPI Summary: Complains of portion of hearing aid stuck in right ear today with decreased hearing in that ear. No other symptoms. - History of Current Complaint Chief Complaint: EDEarPain Time Seen by Provider: 03/25/18 23:17 Hx Obtained From: Patient Severity: Mild - Allergies/Home Medications Allergies/Adverse Reactions: Allergies Allergy/AdvReac Type Severity Reaction Status Date / Time alprazolam [From Xanax] Allergy Dizziness Verified 03/25/18 22:51 bupropion Allergy high BP Verified 03/25/18 22:51 ciprofloxacin [From Cipro] Allergy Itching Verified 03/25/18 22:51 doxycycline Allergy Palpitation Verified 03/25/18 22:51 s esomeprazole [From Nexium] Allergy Itching Verified 03/25/18 22:51 metronidazole [From Flagyl] Allergy Itching Verified 03/25/18 22:51 Penicillins Allergy Hives Verified 03/25/18 22:51 yellow dye Allergy Rash Verified 03/25/18 22:51 PMH/Surg Hx/FS Hx/Imm Hx Endocrine/Hematology History: Denies: Hx Diabetes, Hx Thyroid Disease Cardiovascular History: Reports: Other Cardiovascular Problems/Disorders - Pt has normally low resting HR r/t activity Denies: Hx Hypertension Respiratory History: Denies: Hx Asthma, Hx Chronic Obstructive Pulmonary Disease (COPD), Other Respiratory Problems/Disorders GI History: Reports: Hx Gastroesophageal Reflux Disease, Other GI Disorders - irritable bowel Denies: Hx Ulcer History: Denies: Hx Dialysis, Hx Renal Disease Musculoskeletal History: Reports: Other Musculoskeletal History - Broken R arm r /t fall from ladder 2 yrs ago Sensory History: Reports: Hx Contacts or Glasses, Hx Hearing Aid, Hx Hearing Problem Opthamlomology History: Reports: Hx Contacts or Glasses Neurological History: Denies: Other Neuro Impairments/Disorders - Surgical History Surgery Procedure, Year, and Place: na - Immunization History Date of Tetanus Vaccine: utd Date of Influenza Vaccine: utd Infectious Disease History: No Infectious Disease History: Denies: Hx Hepatitis, Hx Human Immunodeficiency Virus (HIV), History Other Infectious Disease, Traveled Outside the [place] in Last 30 Days - Family History Known Family History: Positive: None - "Nothing. I'm very lynn!" Negative: Cardiac Disease, Hypertension, Diabetes - Social History Alcohol Use: None Hx Substance Use: No Substance Use Type: Reports: None Hx Tobacco Use: No Smoking Status (MU): Never Smoked Tobacco Review of Systems Constitutional: Negative Eyes: Negative Positive: Other Cardiovascular: Negative Respiratory: Negative Gastrointestinal: Negative Genitourinary: Negative Musculoskeletal: Negative Skin: Negative Neurological: Negative Psychological: Normal All Other Systems Reviewed And Are Negative: Yes Physical Exam - Summary Physical Exam Summary: Protective rubber hearing aid cone stuck in right ear. Rubber Cone removed successfully. Patient states hearing is restored to normal. no residual foreign body, pain, bleeding. Triage Information Reviewed: Yes Vital Signs On Initial Exam: Initial Vitals Temp Pulse Resp BP Pulse Ox 98.3 F 72 18 158/82 99 03/25/18 22:43 03/25/18 22:43 03/25/18 22:43 03/25/18 22:43 03/25/18 22:43 Vital Signs Reviewed: Yes Appearance: Positive: Well-Appearing Skin: Positive: Warm Head/Face: Positive: Normal Head/Face Inspection Eyes: Positive: Normal ENT: Positive: Normal ENT inspection Neck: Positive: Supple Respiratory/Lung Sounds: Positive: Clear to Auscultation Cardiovascular: Positive: Normal Abdomen Description: Positive: Nontender Musculoskeletal: Positive: Normal Neurological: Positive: Normal Psychiatric: Positive: Normal AVPU Assessment: Alert - Clay Coma Scale Best Eye Response: 4 - Spontaneous Best Motor Response: 6 - Obeys Commands Best Verbal Response: 5 - Oriented Coma Scale Total: 15 Diagnostics - Vital Signs Vital Signs Temp Pulse Resp BP Pulse Ox 03/25/18 22:43 98.3 F 72 18 158/82 99 - Laboratory Lab Statement: Any lab studies that have been ordered have been reviewed, and results considered in the medical decision making process. EENT Course/Dx - Course Course Of Treatment: Complains of portion of hearing aid stuck in right ear today with decreased hearing in that ear. No other symptoms.Protective rubber hearing aid cone stuck in right ear. Rubber Cone removed successfully. Patient states hearing is restored to normal. no residual foreign body, pain, bleeding. - Diagnoses Provider Diagnoses: Ear foreign body Discharge - Sign-Out/Discharge Documenting (check all that apply): Discharge/Admit/Transfer - Discharge Plan Condition: Improved Disposition: HOME Patient Education Materials: Ear Foreign Body (ED) Referrals: Jamil Kenney MD [Primary Care Provider] - Additional Instructions: Return to the ED for any new or worsening symptoms. - Billing Disposition and Condition Condition: IMPROVED Disposition: Home
== END 2018-03-25 23:41 | disposition home or self-care (01) ==
LOC: ED 22:41
DX: S00.451A Superficial foreign body of right ear, initial encounter (principal); X58.XXXA Exposure to other specified factors, initial encounter; Y92.9 Unspecified place or not applicable
CPT/HCPCS: 99281

== ENCOUNTER 2023-06-09 16:08 | Inpatient (IN) ==
[2023-06-09 16:41] LABS: ABS Eosinophils 0.1 10^3/uL (0.0-0.5); ABS Lymphocytes 1.2 10^3/uL (1.0-4.8); ABS Monocytes 0.6 10^3/uL (0.0-1.1); ABS Neutrophils 4.7 10^3/uL (1.5-7.6); ABS Nucleated RBC 0.01 10^3/ul; Eosinophil % 0.8 %; Hematocrit 42.7 % (38-53); Hemoglobin 14.5 g/dL (13.2-16.3); Lymphocyte % 18.6 %; Mean Corpuscular Volume 102.8 fL (80-97); Mean Platelet Volume 10.3 fL (7.5-11.2); Nucleated Red Blood Cells % 0.1 /100 WBC (0.0-0.4); Platelet Count 171 10^3/uL (150-450); Red Blood Count 4.15 10^6/uL (4.06-5.63); Red Cell Distribution Width 15.8 % (12-17); White Blood Count 6.6 10^3/uL (3.6-10.2)
[2023-06-09 16:49] LABS: INR 1.28 (0.83-1.13)
[2023-06-09 17:00] LABS: Albumin 4.2 g/dL (3.2-5.2); Albumin/Globulin Ratio 1.4 (1-3); Calcium 9.6 mg/dL (8.6-10.3); Creatinine, Serum 2.3 mg/dL (0.67-1.17); Magnesium 2.2 mg/dL (1.9-2.7); Potassium 4.3 mmol/L (3.5-5.0); Total Bilirubin 0.9 mg/dL (0.2-1.0); Total Protein 7.2 g/dL (6.4-8.9); eGFR CKD-EPI 27.3 (>60)
[2023-06-09 17:29] LABS: TSH Ultra Thyroid Stim Horm 6.29 mcIU/mL (0.34-5.60)
[2023-06-09 18:07] LABS: High Sensitivity Troponin 1 Hr 145 pg/mL (<20)
[2023-06-09] MEDS ORDERED: Furosemide 20 mg/2 ml IV VIAL IV SLOW PU ONE (19:33)
[2023-06-09] MEDS ORDERED: Ondansetron 4 mg VIAL 2 MG/ML 2 ml VIAL IV PRN (21:43)
[2023-06-09] MEDS ORDERED: Acetaminophen IV 1 GM/100ML 1,000 MG/100 ML BAG IV PRN (21:51)
[2023-06-09] MEDS ORDERED: Enoxaparin 100 MG/ML SYR SUBCUT SCH (22:00)
[2023-06-09 22:08] LABS: Urine Appearance Clear; Urine Bilirubin Negative (Negative); Urine Blood 1+ (Negative); Urine Color Yellow; Urine Glucose Negative (Negative); Urine Ketones Negative (Negative); Urine Nitrite Negative (Negative); Urine Protein 2+(100 mg/dL) (Negative); Urine Specific Gravity 1.015 (1.002-1.030); Urine Urobilinogen Negative (Negative)
[2023-06-09 22:18] LABS: Urine Amorphous Crystals Present (Absent); Urine Bacteria 1+ (Absent); Urine Red Blood Cell Trace(0-2/hpf) (Absent); Urine Squamous Epithelial Cell Present (Absent); Urine White Blood Cell Trace(0-5/hpf) (Absent)
[2023-06-09 23:38] LABS: Urine Creatinine Concentration 123.83 mg/dL (20.00-370.00)
[2023-06-10 00:03] LABS: Free T4 1.4 ng/dL (0.61-1.12)
[2023-06-10 05:40] LABS: ABS Eosinophils 0.1 10^3/uL (0.0-0.5); ABS Lymphocytes 0.8 10^3/uL (1.0-4.8); ABS Monocytes 0.5 10^3/uL (0.0-1.1); ABS Nucleated RBC 0.01 10^3/ul; Eosinophil % 0.7 %; Hematocrit 38.9 % (38-53); Hemoglobin 13.4 g/dL (13.2-16.3); Lymphocyte % 11.2 %; Mean Corpuscular Hemoglobin 35.2 pg (27-33); Mean Corpuscular Hgb Conc 34.5 g/dL (31-36); Mean Corpuscular Volume 101.9 fL (80-97); Mean Platelet Volume 9.6 fL (7.5-11.2); Nucleated Red Blood Cells % 0.1 /100 WBC (0.0-0.4); Platelet Count 153 10^3/uL (150-450); Red Blood Count 3.81 10^6/uL (4.06-5.63); Red Cell Distribution Width 15.7 % (12-17); White Blood Count 7.4 10^3/uL (3.6-10.2)
[2023-06-10 06:01] LABS: Creatinine, Serum 2.43 mg/dL (0.67-1.17); Potassium 4.3 mmol/L (3.5-5.0)
[2023-06-10 06:02] LABS: Calcium 9.3 mg/dL (8.6-10.3); eGFR CKD-EPI 25.6 (>60)
[2023-06-10] MEDS ORDERED: Furosemide 40 mg/4 ml IV VIAL IV SLOW PU ONE ×2 (09:00→09:32)
[2023-06-10] MEDS: Enoxaparin 100 MG/ML SYR SUBCUT SCH (21:02)
[2023-06-11 06:46] LABS: ABS Lymphocytes 1.8 10^3/uL (1.0-4.8); ABS Monocytes 0.7 10^3/uL (0.0-1.1); ABS Neutrophils 4.2 10^3/uL (1.5-7.6); ABS Nucleated RBC 0.01 10^3/ul; Eosinophil % 0.4 %; Hematocrit 40.3 % (38-53); Hemoglobin 13.7 g/dL (13.2-16.3); Lymphocyte % 26.4 %; Mean Corpuscular Hemoglobin 34.9 pg (27-33); Mean Corpuscular Hgb Conc 34.1 g/dL (31-36); Mean Corpuscular Volume 102.6 fL (80-97); Mean Platelet Volume 10.1 fL (7.5-11.2); Nucleated Red Blood Cells % 0.1 /100 WBC (0.0-0.4); Platelet Count 152 10^3/uL (150-450); Red Blood Count 3.93 10^6/uL (4.06-5.63); Red Cell Distribution Width 15.3 % (12-17); White Blood Count 6.7 10^3/uL (3.6-10.2)
[2023-06-11 07:15] LABS: Calcium 8.9 mg/dL (8.6-10.3); Creatinine, Serum 2.75 mg/dL (0.67-1.17); Magnesium 2.3 mg/dL (1.9-2.7); Potassium 4.6 mmol/L (3.5-5.0)
[2023-06-11] MEDS ORDERED: Bumetanide IV 0.25 MG/ML 4 ml VIAL (1 mg) IV SLOW PU ONE ×2 (07:59→19:19)
[2023-06-11 11:53] LABS: Ferritin 165.5 ng/mL (24-336)
[2023-06-11 19:18] LABS: Calcium 9.1 mg/dL (8.6-10.3); Creatinine, Serum 2.79 mg/dL (0.67-1.17); Potassium 4.5 mmol/L (3.5-5.0); eGFR CKD-EPI 21.7 (>60)
[2023-06-11] MEDS: Enoxaparin 100 MG/ML SYR SUBCUT SCH (20:52)
[2023-06-12 06:05] LABS: ABS Eosinophils 0.1 10^3/uL (0.0-0.5); ABS Lymphocytes 1.3 10^3/uL (1.0-4.8); ABS Monocytes 0.6 10^3/uL (0.0-1.1); ABS Neutrophils 4.1 10^3/uL (1.5-7.6); ABS Nucleated RBC 0.01 10^3/ul; Hematocrit 41.5 % (38-53); Hemoglobin 14.2 g/dL (13.2-16.3); Lymphocyte % 21.2 %; Mean Corpuscular Hemoglobin 34.9 pg (27-33); Mean Corpuscular Hgb Conc 34.1 g/dL (31-36); Mean Corpuscular Volume 102.3 fL (80-97); Nucleated Red Blood Cells % 0.2 /100 WBC (0.0-0.4); Platelet Count 156 10^3/uL (150-450); Red Blood Count 4.06 10^6/uL (4.06-5.63); Red Cell Distribution Width 15.9 % (12-17); White Blood Count 6.2 10^3/uL (3.6-10.2)
[2023-06-12 06:18] LABS: Creatinine, Serum 2.81 mg/dL (0.67-1.17); Magnesium 2.2 mg/dL (1.9-2.7); Potassium 4.3 mmol/L (3.5-5.0); eGFR CKD-EPI 21.5 (>60)
[2023-06-12] MEDS ORDERED: NS 0.9% 1000 ml BAG 1,000 ML IV ONE (07:00)
[2023-06-12] MEDS ORDERED: Magnesium Sulfate 2 gm BAG 2 GM/50 ML BAG IVPB ONE (08:08)
[2023-06-12] MEDS ORDERED: Bumetanide IV 0.25 MG/ML 4 ml VIAL (1 mg) IV SLOW PU STA (10:03)
[2023-06-12] MEDS ORDERED: Naloxone 0.4 mg VIAL 0.4 mg/ml 1 ml VIAL ONE (13:53)
[2023-06-12] MEDS ORDERED: Midazolam 5 mg/5 ml VIAL 1 mg/ml 5 ml VIAL (5 mg) ONE (13:53)
[2023-06-12] MEDS ORDERED: fentaNYL 100 mcg/2 ml 50 MCG/ML VIAL ONE (13:53)
[2023-06-12] MEDS ORDERED: Flumazenil 0.5 mg/5 ml 0.1 MG/ML 5 ml VIAL ONE (13:53)
[2023-06-12] MEDS ORDERED: fentaNYL 100 mcg/2 ml 50 MCG/ML VIAL IV SLOW PU ONE (14:20)
[2023-06-12] MEDS ORDERED: Midazolam 10 mg/10 ml VIAL 1 mg/ml 10 ml VIAL (10 mg) IV SLOW PU ONE (14:20)
[2023-06-12] MEDS: Amiodarone 400 mg TAB PO SCH (17:05)
[2023-06-13 07:00] LABS: Calcium 8.6 mg/dL (8.6-10.3); Creatinine, Serum 2.64 mg/dL (0.67-1.17); Magnesium 2.3 mg/dL (1.9-2.7); Phosphorus 5.1 mg/dL (2.5-5.0); Potassium 3.8 mmol/L (3.5-5.0); eGFR CKD-EPI 23.2 (>60)
[2023-06-13 07:14] LABS: ABS Eosinophils 0.1 10^3/uL (0.0-0.5); ABS Lymphocytes 1.3 10^3/uL (1.0-4.8); ABS Monocytes 0.6 10^3/uL (0.0-1.1); ABS Nucleated RBC 0.01 10^3/ul; Eosinophil % 1.4 %; Hematocrit 41.5 % (38-53); Hemoglobin 14.3 g/dL (13.2-16.3); Lymphocyte % 18.3 %; Mean Corpuscular Hemoglobin 35.2 pg (27-33); Mean Corpuscular Hgb Conc 34.3 g/dL (31-36); Mean Corpuscular Volume 102.7 fL (80-97); Nucleated Red Blood Cells % 0.2 /100 WBC (0.0-0.4); Platelet Count 170 10^3/uL (150-450); Red Blood Count 4.04 10^6/uL (4.06-5.63); Red Cell Distribution Width 15.8 % (12-17)
[2023-06-13] MEDS: Amiodarone 400 mg TAB PO SCH (09:42)
[2023-06-13] MEDS ORDERED: Bumetanide IV 0.25 MG/ML 4 ml VIAL (1 mg) IV SLOW PU STA (10:32)
[2023-06-13 14:19] VITALS: BP 98/72
== END 2023-06-13 17:12 | disposition home or self-care (01) | DRG 291 ==
LOC: EDHOLD 16:08 → ED 16:08 → SUATTDRO 20:55 → MEDTELE 06-10 13:32 → SUATTDRO 06-11 11:55
PROVIDERS: ADMIT Hospitalist; ATTEND Hospitalist